=== PATIENT | male | born 1980 | race Two or more races ===

== ENCOUNTER 2016-11-20 17:46 | Emergency (ER) ==
[2016-11-20 17:47] VITALS: BMI 26.5
[2016-11-20 17:50] VITALS: BP 148/89; TEMP 99.1
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
== END 2016-11-20 18:05 | disposition home or self-care (01) ==
LOC: ED 17:46
DX: T20.56XA Corrosion of first degree of forehead and cheek, initial encounter (principal)
CPT/HCPCS: 99282

== ENCOUNTER 2017-05-14 13:11 | Outpatient (CLI) ==
[2017-05-14 13:21] LABS: BASOPHILS # (AUTO) 0.1 K/uL (0-0.2); BASOPHILS % (AUTO) 1.1 % (0.0-3.0); EOSINOPHILS # (AUTO) 0.3 K/ul (0.0-0.7); EOSINOPHILS % (AUTO) 4.4 % (0.0-7.0); HEMATOCRIT 44.2 % (42.0-52.0); HEMOGLOBIN 15.5 g/dl (14.0-18.0); IMMATURE GRANULOCYTE % (AUTO) 0.8 % (0.0-5.0); LYMPHOCYTES # (AUTO) 2.1 K/uL (0.60-3.4); LYMPHOCYTES % (AUTO) 33.6 (10.0-50.0); MEAN CORPUSCULAR HEMOGLOBIN 28.9 pg (27.0-31.0); MEAN CORPUSCULAR HGB CONC 35.1 (31.8-35.4); MEAN CORPUSCULAR VOLUME 82.3 fl (80.0-94.0); MONOCYTES # (AUTO) 0.5 K/uL (0.4-2.0); MONOCYTES % (AUTO) 7.7 (0-10); NEUTROPHILS # (AUTO) 3.2 K/ul (2.0-6.9); NEUTROPHILS % (AUTO) 52.4; PLATELET COUNT 297 10^3/uL (140-440); RED BLOOD COUNT 5.37 10^6/ul (4.70-6.10); WHITE BLOOD COUNT 6.11 K/ul (4.2-10.2)
== END 2017-05-14 13:12 | disposition home or self-care (01) ==
LOC: LAB 13:11
PROVIDERS: ATTEND Nurse Practitioner Family
DX: Z86.19 Personal history of other infectious and parasitic diseases (principal)
CPT/HCPCS: 36415; 85025; 86617

== ENCOUNTER 2018-03-18 09:00 | Outpatient (RCR) ==
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
--- NOTE | 2018-03-16 14:14 | RS.OPPTDN ---
Subjective Date of Note: 03/16/18 Visit #: 2 Date of Evaluation: 02/25/18 Payer Source: Medicaid Treatment Diagnosis: Low back pain Current Subjective/complaints:: Patient reports feeling "75 % better " than before the steroid injection. Pain Assessment - Pain Description Pain Description: Dull, Aching Current Pain Intensity: 4/10 Other Comments regarding Pain:: No radiculopathy present in the lower extremities . - Treatment Modality: Electrical Stim Unattended Parameters/Method Applied: 20 mins. high volt @ 75 pv. , 2 large electrodes to L and R paraspinals. Patient Position: Prone - Heat/Cryotherapy Treatment: Hot Pack (concurrent with e-stim) Interventions - Exercise/Activities/Manual Therapy Exercises/Activities: Patient in prone lying and prone on elbows 5 mins.,then instructed in prone partial push-ups,passive hip flexor stretches in prone and side-lying.Supine SI muscle energy of resisted R hip extension / resisted L hip flexion.HEP review. Total minutes of Exercise: 35 Manual Therapy: NA Total minutes of Manual Therapy: 0 HOME EXERCISE PROGRAM: Prone lying and MARCUS 5-10 mins. Standing lumbar extension and/or hip extension following any sitting activities. - Charges Timed Code Treatment Minutes: 55 Total Treatment Time: 60 Procedures billed for this date of service:: hp,e-stim,ex 2 Assessment: Patient tolerates prone and MARCUS well,has minor increase in pain with prone partial push-ups today.He has leg length discrepancy ,which improves after muscle energy done.He is attentive and compliant to recommendations. Patient Education: Education of diagnosis, Body/Joint mechanics, Home Exercise Program, Home Safety, Activity Modification, Education of Plan of Care Patient demonstrates compliance with HEP?: Yes Short Term Goals Goal #1: Patient independent and compliant with basic HEP. Goal to be met by: 03/07/18 Progress towards Goal:: Progressing Goal #2: Right SLR to 40 degrees. Goal to be met by: 03/11/18 Goal #3: Low back pain at rest <5/10. Goal to be met by: 03/11/18 Progress towards Goal:: Progressing Usp Goals Goal #1: Pt knows HEP and to continue exercises after D/C from therapy. Goal to be met by: 04/06/18 Progress towards goal: Progressing Goal #2: Score on Oswestry LBP scale improved to 38. Goal to be met by: 04/06/18 Goal #3: Pt to tolerate sitting activities without LE or low back pain. Goal to be met by: 04/06/18 Goal #4: Pt to demo. good understanding of back safety and proper body mechanics. Goal to be met by: 04/06/18 Progress towards goal: Progressing Plan PLAN OF CARE EXPIRES ON:: 04/06/18 ORDER # VISITS AND/OR THROUGH DATE: 04/06/18 PLAN: Continue PT to return to PLOF.
--- NOTE | 2018-03-18 09:34 | RS.OPPTDN ---
Subjective Date of Note: 03/18/18 Visit #: 3 Date of Evaluation: 02/25/18 Payer Source: Medicaid Treatment Diagnosis: Low back pain Current Subjective/complaints:: Patient pleased with his progress,reports no pain today,fels comfortable with HEP.He requests to hold treatment for one week ,and if no return of symptoms ,we will D/C therapy. Pain Assessment - Pain Description Pain Location: lumbar Pain Description: Sharp Current Pain Intensity: 1-2 Worst Pain Intensity: 5 - Treatment Modality: Electrical Stim Unattended Parameters/Method Applied: 20 mis. @ 85 pv ,2 large electrodes to lumar paraspinals. Patient Position: Prone - Heat/Cryotherapy Treatment: Hot Pack (concurrent with e-stim) Interventions - Exercise/Activities/Manual Therapy Exercises/Activities: HEP review only today. Total minutes of Exercise: 0 Manual Therapy: NA Total minutes of Manual Therapy: 0 HOME EXERCISE PROGRAM: Prone lying and MARCUS 5-10 mins. Standing lumbar extension and/or hip extension following any sitting activities. - Charges Timed Code Treatment Minutes: 20 Total Treatment Time: 25 Procedures billed for this date of service:: hp,e-stim Assessment: Patient is independent with HP.His pain level is moderate when elevated ,but today is minimal.he has good understanding of HEP.We discussed holding PT for one week,then D/C if symptoms do not worsen. Patient Education: Education of diagnosis, Body/Joint mechanics, Home Exercise Program, Home Safety, Activity Modification, Education of Plan of Care Patient demonstrates compliance with HEP?: Yes Short Term Goals Goal #1: Patient independent and compliant with basic HEP. Goal to be met by: 03/07/18 Progress towards Goal:: Met Goal #2: Right SLR to 40 degrees. Goal to be met by: 03/11/18 Progress towards Goal:: Met Goal #3: Low back pain at rest <5/10. Goal to be met by: 03/11/18 Progress towards Goal:: Partially Met Board Certified Behavioral Analyst Goals Goal #1: Pt knows HEP and to continue exercises after D/C from therapy. Goal to be met by: 04/06/18 Progress towards goal: Met Goal #2: Score on Oswestry LBP scale improved to 38. Goal to be met by: 04/06/18 Goal #3: Pt to tolerate sitting activities without LE or low back pain. Goal to be met by: 04/06/18 Progress towards goal: Progressing Goal #4: Pt to demo. good understanding of back safety and proper body mechanics. Goal to be met by: 04/06/18 Progress towards goal: Partially Met Plan PLAN OF CARE EXPIRES ON:: 04/06/18 ORDER # VISITS AND/OR THROUGH DATE: 04/06/18 PLAN: Hold PT for one week,then D/C if symptoms do not increase.
--- NOTE | 2018-03-25 08:59 | RS.QUICKDC ---
Discharge from PT Date of Discharge: 03/25/18 Number of Visits: 3 Reason for Discharge: Patient reports at the last session he feels much better , plans to continue the exercises on his own.We discussed for him to give us a courtesy call if he needed more therapy due to pain.This IN [employer]FU[employer] left message yesterday to check his status,but no return call.
== END 2018-03-26 23:59 ==
PROVIDERS: ATTEND Physician Assistant
DX: M54.5 Low back pain (principal)

== ENCOUNTER 2019-05-19 08:05 | Outpatient (CLI) | END 2019-05-19 08:06 | disposition home or self-care (01) | LOC: LAB 08:05 | PROVIDERS: ATTEND Physician Assistant Medical | DX: R53.83 Other fatigue (principal); E29.1 Testicular hypofunction; S06.9X9S Unspecified intracranial injury with loss of consciousness of unspecified duration, sequela | CPT/HCPCS: 36415; 82024; 82306; 82607; 83001; 83002; 84146; 84305; 84402; 84403; 84439; 84443; 85025 ==